=== PATIENT | male | born 1950 | race Hispanic/Latino ===

== ENCOUNTER 2018-08-31 07:17 | Inpatient (IN) | payer MEDICARE ==
[2018-08-31 07:17] VITALS: BMI 30.2
--- NOTE | 2018-08-31 07:47 | C.PDOC ---
History Of Present Illness 68 y/o male presents to ED with c/o infection to left 4th toe for 3 weeks. Patient states he has been seen by Dr. Peng center lead consultant who has put him on outpatient on antibiotics with no improvement as per patient. Patient states toe is more red and swollen, states he had a recent MRI that showed Osteomyelitis. Patient denies fever, chills, nausea, vomiting, numbness or weakness of foot. No other complaints at this time. Time Seen by Provider: 08/31/18 07:34 Chief Complaint (Nursing): Lower Extremity Problem/Injury History Per: Patient History/Exam Limitations: no limitations Onset/Duration Of Symptoms: Days Current Symptoms Are (Timing): Still Present Past Medical History Reviewed: Historical Data, Nursing Documentation, Vital Signs Vital Signs: Last Vital Signs Temp 98.5 F 08/31/18 07:25 Pulse 79 08/31/18 07:25 Resp 16 08/31/18 07:25 BP 143/86 08/31/18 07:25 Pulse Ox 96 08/31/18 07:25 - Medical History PMH: Anxiety, CHF, COPD, Fractures (NASAL CHILDHOOD), HTN, Hypercholesterolemia Surgical History: No Surg Hx - [facility] Procedures TRANSURETHRAL PROSTATECTOMY ([place]) (03/18/14) Family History: States: No Known Family Hx - Social History Hx Alcohol Use: No Hx Substance Use: No - Immunization History Hx Tetanus Toxoid Vaccination: No Hx Influenza Vaccination: Yes Hx Pneumococcal Vaccination: Yes Review Of Systems Constitutional: Negative for: Fever, Chills Eyes: Negative for: Pain ENT: Negative for: Ear Pain Cardiovascular: Negative for: Chest Pain Respiratory: Negative for: Cough, Shortness of Breath Gastrointestinal: Negative for: Nausea, Vomiting Genitourinary: Negative for: Dysuria, Frequency Musculoskeletal: Positive for: Foot Pain (toe) Skin: Negative for: Rash Neurological: Negative for: Weakness, Numbness Physical Exam - Physical Exam Appears: Non-toxic, No Acute Distress Skin: Warm, Dry, No Rash, Other (left 4th toe erythematous) Head: Atraumatic, Normacephalic Eye(s): bilateral: Normal Inspection Oral Mucosa: Moist Neck: Normal ROM Cardiovascular: Rhythm Regular Respiratory: Normal Breath Sounds Gastrointestinal/Abdominal: Soft, No Tenderness Extremity: Capillary Refill (<2 seconds), No Deformity, Swelling (left 4th toe) Pulses: Left Dorsalis Pedis: Normal, Right Dorsalis Pedis: Normal Neurological/Psych: Oriented x3, Normal Motor, Normal Sensation Gait: Steady ED Course And Treatment - Laboratory Results Result Diagrams: 08/31/18 08:10 08/31/18 08:10 O2 Sat by Pulse Oximetry: 96 (RA) Pulse Ox Interpretation: Normal Medical Decision Making Medical Decision Making: The case was discussed with Dr. Jared Peng (Nut Former) who states that the qasim ent has Osteomyelitits and needs admission for IV antibiotics and has failed outpatient therapy. The case was discussed with Dr. Jose Peng (PMD) who agrees to admit the patient his service and requests Dr. Levin for surgical consult. Disposition - Disposition Disposition: HOSPITALIZED Disposition Time: 08:55 Condition: STABLE - POA Present On Arrival: None - Clinical Impression Clinical Impression: Osteomyelitis - PA / SPORTS TEAM MANAGER / Resident Statement MD/DO has reviewed & agrees with the documentation as recorded. - Scribe Statement The provider has reviewed the documentation as recorded by the Meera Kaba All medical record entries made by the Meera were at my direction and personally dictated by me. I have reviewed the chart and agree that the record accurately reflects my personal performance of the history, physical exam, medical decision making, and the department course for this patient. I have also personally directed, reviewed, and agree with the discharge instructions and disposition.
[2018-08-31 08:14] LABS: BASO # 0.1 K/uL (0.0-0.2); BASO % 1.5 % (0.0-2.0); EOS # 0.3 K/uL (0.0-0.7); EOS % 4.8 % (0.0-4.0); HEMOGLOBIN 15.1 g/dL (12.0-18.0); LYMPH % 14.9 % (20.0-40.0); MEAN CELL VOLUME 83.8 fL (80.0-94.0); MEAN CORPUSCULAR HEMOGLOBIN 28.1 pg (27.0-31.0); MEAN CORPUSCULAR HGB CONC 33.6 g/dL (33.0-37.0); MEAN PLATELET VOLUME 10.3 fL (7.2-11.7); MONO # 0.6 K/uL (0.0-0.8); MONO % 9.5 % (0.0-10.0); NEUT # 4.6 K/uL (1.8-7.0); NEUT % 69.3 % (50.0-75.0); NRBC % 0.2 % (0.0-2.0); RBC 5.36 Mil/uL (4.40-5.90); RED CELL DISTRIBUTION WIDTH 14.4 % (11.5-14.5); WHITE BLOOD COUNT 6.6 K/uL (4.8-10.8)
[2018-08-31 08:25] LABS: ALB/GLOB RATIO 1.4 (1.0-2.1); ALBUMIN 4.5 g/dL (3.5-5.0); ALT/SGPT 21 U/L (21-72); AST/SGOT 18 U/L (17-59); BLOOD UREA NITROGEN 21 mg/dL (9-20); CALCIUM 9.6 mg/dl (8.6-10.4); GFR NON-AFRICAN AMERICAN > 60
--- NOTE | 2018-08-31 12:29 | CP.PCM.CON ---
History of Present Illness - History of Present Illness History of Present Illness: 68 y/o male presents to ED with c/o infection to left 4th toe for 3 weeks. Patient states he has been seen by Dr. Peng truck washer who has put him on outpatient on antibiotics with no improvement as per patient. Patient states toe is more red and swollen, states he had a recent MRI that showed Osteomyelitis. Patient denies fever, chills, nausea, vomiting, numbness or weakness of foot. No other complaints at this time. EMPIRIC iv RX ORDERED CULTURES PENDING MAY ELECT FOR RESECTION NEEDS VASCULAR CLEARANCE - Medical History PMH: Anxiety, CHF, COPD, Fractures (NASAL CHILDHOOD), HTN, Hypercholesterolemia Surgical History: No Surg Hx - [facility] Procedures TRANSURETHRAL PROSTATECTOMY ([place]) (03/18/14) Review of Systems - Review of Systems All systems: reviewed and no additional remarkable complaints except Past Patient History - Infectious Disease Hx of Infectious Diseases: None - Past Medical History & Family History Past Medical History?: Yes - Past Social History Smoking Status: Former Smoker - CARDIAC Hx Congestive Heart Failure: Yes Hx Hypercholesterolemia: Yes Hx Hypertension: Yes - PULMONARY Hx Chronic Obstructive Pulmonary Disease (COPD): Yes - HEENT Other/Comment: HISTORY NASAL FRACTURE CHILDHOOD - HEMATOLOGICAL/ONCOLOGICAL Hx Cancer: Yes Hx Chemotherapy: Yes (2011 RADIATION 2012) - MUSCULOSKELETAL/RHEUMATOLOGICAL Hx Fractures: Yes (NASAL CHILDHOOD) - GENITOURINARY/GYNECOLOGICAL Hx Genitourinary Disorders: Yes Hx Prostate Problems: Yes Other/Comment: URINARY FREQUENCY - PSYCHIATRIC Hx Anxiety: Yes Hx Substance Use: No - SURGICAL HISTORY Hx Surgeries: Yes Hx Arthroscopy: Yes (BOTH KNEES 30 YRS AGO) Hx Pulmonary Surgery: Yes (LEFT UPPER LOBECTOMY 2011) Other/Comment: PROSTATE BX 2006 2007 CYSTOSCOPY LUNG BX - ANESTHESIA Hx Anesthesia: Yes Hx Anesthesia Reactions: No Hx Malignant Hyperthermia: No Meds Allergies/Adverse Reactions: Allergies Allergy/AdvReac Type Severity Reaction Status Date / Time No Known Allergies Allergy Verified 08/31/18 07:32 - Medications Medications: Current Medications Alprazolam (Xanax) 0.25 mg PO BID [facility] Stop: 09/07/18 18:01 Carvedilol (Coreg) 6.25 mg PO BID [facility] Rosuvastatin Calcium (Crestor) 10 mg PO HS [facility] Sacubitril/Valsartan (Entresto 24 Mg-26 Mg) 1 tab PO BID [facility] Sertraline HCl (Zoloft) 100 mg PO DAILY [facility] Physical Exam - Constitutional Appears: Chronically Ill - Head Exam Head Exam: ATRAUMATIC - Eye Exam Eye Exam: absent: Scleral icterus - ENT Exam ENT Exam: Mucous Membranes Dry - Neck Exam Neck exam: Negative for: Lymphadenopathy - Respiratory Exam Respiratory Exam: Decreased Breath Sounds - Cardiovascular Exam Cardiovascular Exam: REGULAR RHYTHM, +S1, +S2 - GI/Abdominal Exam GI & Abdominal Exam: Diminished Bowel Sounds, Soft. absent: Tenderness - Rectal Exam Rectal Exam: Deferred - Exam Exam: NORMAL INSPECTION - Extremities Exam Extremities exam: Negative for: pedal edema, pedal pulses present Additional comments: DECREASED PULSES LEFT 4TH DIGIT WITH ULCER NO PUS Results - Vital Signs Recent Vital Signs: Last Vital Signs Temp 98.6 F 08/31/18 11:29 Pulse 70 08/31/18 11:29 Resp 18 08/31/18 11:29 BP 106/68 08/31/18 11:29 Pulse Ox 95 08/31/18 11:29 - Labs Result Diagrams: 08/31/18 08:10 08/31/18 08:10 Labs: Laboratory Results - last 24 hr 08/31/18 08/31/18 08:10 08:10 WBC 6.6 RBC 5.36 Hgb 15.1 Hct 44.9 MCV 83.8 MCH 28.1 MCHC 33.6 RDW 14.4 Plt Count 142 MPV 10.3 Neut % (Auto) 69.3 Lymph % (Auto) 14.9 L [place] % (Auto) 9.5 Eos % (Auto) 4.8 H Baso % (Auto) 1.5 Neut # (Auto) 4.6 Lymph # (Auto) 1.0 [place] # (Auto) 0.6 Eos # (Auto) 0.3 Baso # (Auto) 0.1 Sodium 140 Potassium 4.9 Chloride 100 Carbon Dioxide 27 Anion Gap 19 BUN 21 H Creatinine 0.9 Est GFR ( Amer) > 60 Est GFR (Non-Af Amer) > 60 Random Glucose 102 Calcium 9.6 Total Bilirubin 0.6 AST 18 ALT 21 Alkaline Phosphatase 46 Total Protein 7.9 Albumin 4.5 Globulin 3.3 Albumin/Globulin Ratio 1.4 Assessment & Plan - Assessment and Plan (Free Text) Assessment: EMPIRIC IV RX ORDERED CULTURES PENDING MAY ELECT FOR RESECTION CONSIDER VASCULAR CLEARANCE
--- NOTE | 2018-08-31 13:55 | RAD ---
Date of service: 08/31/2018 PROCEDURE: Left Foot Radiographs. HISTORY: 4th digit ulcer COMPARISON: None. FINDINGS: BONES: There is moderate soft tissue swelling left 4th toe however no obvious acute displaced fracture nor cortical destructive changes are identified. Findings may represent a cellulitis secondary to ulcer as per history however the ulceration is not well delineated on this plain film radiograph. No subcutaneous emphysema.. Tiny plantar and posterior calcaneal enthesophyte formation JOINTS: There is mild degenerative osteoarthritis 1st MTP joint. Hammertoe deformities of the 4th through 5th digits limits evaluation of joint spaces. SOFT TISSUES: Normal. OTHER FINDINGS: None. IMPRESSION: Moderate soft tissue swelling left 4th toe however no obvious acute displaced fracture nor cortical destructive changes are identified. Findings may represent a cellulitis secondary to ulcer as per history however the ulceration is not well delineated on this plain film radiograph. No subcutaneous emphysema
[2018-08-31] MEDS: Piperacillin/Tazobact 3.375 GM in Sodium Chloride 100 ML IVPB SCH ×2 (14:28→21:27)
--- NOTE | 2018-08-31 14:34 | CP.PCM.CON ---
History of Present Illness - History of Present Illness History of Present Illness: Podiatry - Dr. Peng 68 year old male patient PMHx lung cx, Anxiety, CHF, COPD, hx nasal fx, HTN, Hypercholesterolemia seen and evaluated in ED concerning left 4th digit ulcer + cellulitis. Patient states ulcer and surrounding redness/swelling first developed about 1 month ago; states he went to his PCP Dr. Jose Peng for treatment and was prescribed oral antibiotics however redness persisted and ulcer remained nonhealing. Patient states he then saw Dr. Jared Peng 1 week ago for continued care who prescribed an antibiotic ointment as well. Patient states Dr. Jayme Peng recommended patient obtain an MRI which revealed 4th digit os teomyelitis so was thus referred to the ED for admission - for IV abx and possible 4th digit amputation. At present, patient reports mild pain in 4th digit. Denies n/v/f/c/prabhakar/dizziness. Admits to SOB with exertion. PMHx: as above PSH: lobectomy, right knee excision of cyst, left knee excision of bursa FH: unknown SH: previous occasional ETOH use, 1PPD x56 years - quit 6 years ago, no illicit drug use; retired All: NKDA Past Patient History - Infectious Disease Hx of Infectious Diseases: None - Past Medical History & Family History Past Medical History?: Yes - Past Social History Smoking Status: Former Smoker - CARDIAC Hx Congestive Heart Failure: Yes Hx Hypercholesterolemia: Yes Hx Hypertension: Yes - PULMONARY Hx Chronic Obstructive Pulmonary Disease (COPD): Yes - NEUROLOGICAL Hx Neurological Disorder: No - HEENT Other/Comment: HISTORY NASAL FRACTURE CHILDHOOD - RENAL Hx Chronic Kidney Disease: No - ENDOCRINE/METABOLIC Hx Endocrine Disorders: No - HEMATOLOGICAL/ONCOLOGICAL Hx Cancer: Yes Hx Chemotherapy: Yes (2011 RADIATION 2012) - INTEGUMENTARY Hx Dermatological Problems: Yes Other/Comment: toe wound - MUSCULOSKELETAL/RHEUMATOLOGICAL Hx Fractures: Yes (NASAL CHILDHOOD) - GASTROINTESTINAL Hx Gastrointestinal Disorders: No - GENITOURINARY/GYNECOLOGICAL Hx Genitourinary Disorders: Yes Hx Prostate Problems: Yes Other/Comment: URINARY FREQUENCY - PSYCHIATRIC Hx Anxiety: Yes Hx Substance Use: No - SURGICAL HISTORY Hx Surgeries: Yes Hx Arthroscopy: Yes (BOTH KNEES 30 YRS AGO) Hx Pulmonary Surgery: Yes (LEFT UPPER LOBECTOMY 2011) Other/Comment: PROSTATE BX 2006 2007 CYSTOSCOPY LUNG BX - ANESTHESIA Hx Anesthesia: Yes Hx Anesthesia Reactions: No Hx Malignant Hyperthermia: No Meds Allergies/Adverse Reactions: Allergies Allergy/AdvReac Type Severity Reaction Status Date / Time No Known Allergies Allergy Verified 08/31/18 07:32 - Medications Medications: Current Medications Alprazolam (Xanax) 0.25 mg PO BID [facility] Stop: 09/07/18 18:01 Buspirone HCl (Buspar) 20 mg PO TID [facility] Last Admin: 08/31/18 13:51 Dose: Not Given Carvedilol (Coreg) 6.25 mg PO BID [facility] Home Med (Patient's Own Medication) 1 tab PO DAILY [facility] Piperacillin Sod/Tazobactam (Sod 3.375 gm/ Sodium Chloride) 100 mls @ 200 mls/hr IVPB Q8H [facility]; Protocol Last Admin: 08/31/18 14:28 Dose: 200 mls/hr Rosuvastatin Calcium (Crestor) 10 mg PO HS [facility] Sacubitril/Valsartan (Entresto 24 Mg-26 Mg) 1 tab PO BID [facility] Sertraline HCl (Zoloft) 100 mg PO DAILY [facility] Last Admin: 08/31/18 13:48 Dose: 100 mg Physical Exam - Constitutional Appears: Well, Non-toxic, No Acute Distress - Extremities Exam Additional comments: LLE focusd physical exam: VASC: DP and PT pulses palpable 2/4. CFT <3 seconds to digits x5. Temperature gradient warm to warm, with increase in warmth noted to 4th digit erythema. Nonpitting edema noted to 4th digit. NEURO: Protective sensation diminished. DERM: Full thickness ulceration noted to distal tuft measuring approximately 0.4 x 0.4 x 0.2cm - ulcer noted to have a 100% granular base and hyperkeratotic rim; no drainage; no purulence; no fluctuance; no undermining; no tunneling; no probe to bone; periwound erythema extending proximally to the base of the 4th digit. ORTHO: Minimal tenderness to palpation noted to ulceration. Muscle strength 5/5 for all dorsiflexors, plantarflexors, inverters, and everters. - Neurological Exam Neurological exam: Alert, Oriented x3 - Psychiatric Exam Psychiatric exam: Normal Affect, Normal Mood Results - Vital Signs Recent Vital Signs: Last Vital Signs Temp 97.4 F L 08/31/18 12:00 Pulse 65 08/31/18 12:00 Resp 20 08/31/18 12:00 BP 116/73 08/31/18 12:00 Pulse Ox 95 08/31/18 12:00 - Labs Result Diagrams: 08/31/18 08:10 08/31/18 08:10 Labs: Laboratory Results - last 24 hr 08/31/18 08/31/18 08:10 08:10 WBC 6.6 RBC 5.36 Hgb 15.1 Hct 44.9 MCV 83.8 MCH 28.1 MCHC 33.6 RDW 14.4 Plt Count 142 MPV 10.3 Neut % (Auto) 69.3 Lymph % (Auto) 14.9 L [place] % (Auto) 9.5 Eos % (Auto) 4.8 H Baso % (Auto) 1.5 Neut # (Auto) 4.6 Lymph # (Auto) 1.0 [place] # (Auto) 0.6 Eos # (Auto) 0.3 Baso # (Auto) 0.1 Sodium 140 Potassium 4.9 Chloride 100 Carbon Dioxide 27 Anion Gap 19 BUN 21 H Creatinine 0.9 Est GFR ( Amer) > 60 Est GFR (Non-Af Amer) > 60 Random Glucose 102 Calcium 9.6 Total Bilirubin 0.6 AST 18 ALT 21 Alkaline Phosphatase 46 Total Protein 7.9 Albumin 4.5 Globulin 3.3 Albumin/Globulin Ratio 1.4 Assessment & Plan - Assessment and Plan (Free Text) Assessment: 68M with nonhealing ulceration to left 4th digit + osteomyelitis Plan: Patient seen and evaluated Discussed with attending, Dr. Peng Afebrile, WBC 6.6, ESR 24 Left 4th digit wound culture taken, f/u Left foot XR obtained, f/u report Betadine applied to wound and dressed with DSD -Bactroban ordered QD dressing changes Surgical shoe ordered ID consulted, empiric abx started Podiatry will continue to follow
--- NOTE | 2018-08-31 15:51 | CP.PCM.CON ---
History of Present Illness - History of Present Illness History of Present Illness: This is a surgery consult for Dr. Graff Consulted for chronic wound and osteomyelitis of the L 4th toe Patient is a 68M with PMHx of lung cancer, hypertension, and hypercholestrolemia who was referred to the ER today by his PCP with L 4th toe osteomyelitis. He says he noticed redness and swelling in the toe 3-4 weeks ago. He denies inciting trauma. He went to see his PCP Dr. Raúl Alcaraz and was given antibiotics and recommended to see mixer driver. His mixer driver Dr. David Alcaraz recommended a local antibiotic lotion and stopped using the oral antibiotic. He says nothing made it better so he received an MRI which pt says showed osteomyelitis of the toe. Pt saw Dr. Graff who thought it might be due to a circulation issue in his L leg. Pt was supposed to get an ultrasound today/tomorrow but due to acute worsening of his symptoms he came to the ER. Pt currently rates the presence of 3/10 pain in his L 4th toe with no radiation of redness, tenderness, swelling, and numbness. He denies fevers/chills, tingling, nausea/vomiting, constipation, or claudication with walking. PMHx: L upper lobe lung cancer, BPH, HTN, hypercholestrolemia, CHF, anxiety SxHx: R knee cyst excision, L knee bursa excision, TURP, L upper lobe of lung excision SocHx: Smoked 1 ppd cigarettes 56 years, quit 6 years ago. Prior occasional ETOH use. He denies drug use. Allergies: NKDA Review of Systems - Review of Systems All systems: reviewed and no additional remarkable complaints except Past Patient History - Infectious Disease Hx of Infectious Diseases: None - Past Medical History & Family History Past Medical History?: Yes Past Family History: Reviewed and not pertinent - Past Social History Smoking Status: Former Smoker Alcohol: Other (former occasional) Drugs: Denies - CARDIAC Hx Congestive Heart Failure: Yes Hx Hypercholesterolemia: Yes Hx Hypertension: Yes - PULMONARY Hx Chronic Obstructive Pulmonary Disease (COPD): Yes Hx Lung Cancer: Yes - NEUROLOGICAL Hx Neurological Disorder: No - HEENT Other/Comment: HISTORY NASAL FRACTURE CHILDHOOD - RENAL Hx Chronic Kidney Disease: No - ENDOCRINE/METABOLIC Hx Endocrine Disorders: No - HEMATOLOGICAL/ONCOLOGICAL Hx Cancer: Yes Hx Chemotherapy: Yes (2011 RADIATION 2012) - INTEGUMENTARY Hx Dermatological Problems: Yes Other/Comment: toe wound - MUSCULOSKELETAL/RHEUMATOLOGICAL Hx Fractures: Yes (NASAL CHILDHOOD) - GASTROINTESTINAL Hx Gastrointestinal Disorders: No - GENITOURINARY/GYNECOLOGICAL Hx Genitourinary Disorders: Yes Hx Prostate Problems: Yes Other/Comment: URINARY FREQUENCY - PSYCHIATRIC Hx Anxiety: Yes Hx Substance Use: No - SURGICAL HISTORY Hx Surgeries: Yes Hx Arthroscopy: Yes (BOTH KNEES 30 YRS AGO) Hx Pulmonary Surgery: Yes (LEFT UPPER LOBECTOMY 2011) Other/Comment: PROSTATE BX 2006 2007 CYSTOSCOPY LUNG BX - ANESTHESIA Hx Anesthesia: Yes Hx Anesthesia Reactions: No Hx Malignant Hyperthermia: No Meds Allergies/Adverse Reactions: Allergies Allergy/AdvReac Type Severity Reaction Status Date / Time No Known Allergies Allergy Verified 08/31/18 07:32 - Medications Medications: Current Medications Alprazolam (Xanax) 0.25 mg PO BID [facility] Stop: 09/07/18 18:01 Buspirone HCl (Buspar) 20 mg PO TID [facility] Last Admin: 08/31/18 13:51 Dose: Not Given Carvedilol (Coreg) 6.25 mg PO BID [facility] Home Med (Patient's Own Medication) 1 tab PO DAILY [facility] Piperacillin Sod/Tazobactam (Sod 3.375 gm/ Sodium Chloride) 100 mls @ 200 mls/hr IVPB Q8H [facility]; Protocol Last Admin: 08/31/18 14:28 Dose: 200 mls/hr Rosuvastatin Calcium (Crestor) 10 mg PO [facility] Sacubitril/Valsartan (Entresto 24 Mg-26 Mg) 1 tab PO BID [facility] Sertraline HCl (Zoloft) 100 mg PO DAILY [facility] Last Admin: 08/31/18 13:48 Dose: 100 mg Physical Exam - Constitutional Appears: Well, Non-toxic, No Acute Distress - Head Exam Head Exam: ATRAUMATIC, NORMOCEPHALIC - Eye Exam Eye Exam: Normal appearance. absent: Conjunctival injection, Scleral icterus - ENT Exam ENT Exam: Mucous Membranes Moist, Normal Oropharynx - Respiratory Exam Respiratory Exam: NORMAL BREATHING PATTERN. absent: Accessory Muscle Use, Respiratory Distress - Cardiovascular Exam Cardiovascular Exam: RRR - GI/Abdominal Exam GI & Abdominal Exam: Soft. absent: Distended, Tenderness - Extremities Exam Extremities exam: Positive for: pedal pulses present (BL DP and TP palpable) Additional comments: mild numbness in the toes BL 4th toe left foot with chronic thickened skin, small area of skin breakdown approximately 3mm diameter with no surrounding erythema, minimal amount of serous fluid expressible, no foul odor, minimal tenderness - Neurological Exam Neurological exam: Alert, Oriented x3 - Psychiatric Exam Psychiatric exam: Normal Affect, Normal Mood - Skin Skin Exam: Dry, Normal Color, Warm Results - Vital Signs Recent Vital Signs: Last Vital Signs Temp 97.8 F 08/31/18 15:00 Pulse 60 08/31/18 15:00 Resp 20 08/31/18 15:00 BP 121/70 08/31/18 15:00 Pulse Ox 95 08/31/18 15:00 - Labs Result Diagrams: 08/31/18 08:10 08/31/18 08:10 Labs: Laboratory Results - last 24 hr 08/31/18 08/31/18 08:10 08:10 WBC 6.6 RBC 5.36 Hgb 15.1 Hct 44.9 MCV 83.8 MCH 28.1 MCHC 33.6 RDW 14.4 Plt Count 142 MPV 10.3 Neut % (Auto) 69.3 Lymph % (Auto) 14.9 L [place] % (Auto) 9.5 Eos % (Auto) 4.8 H Baso % (Auto) 1.5 Neut # (Auto) 4.6 Lymph # (Auto) 1.0 [place] # (Auto) 0.6 Eos # (Auto) 0.3 Baso # (Auto) 0.1 Sodium 140 Potassium 4.9 Chloride 100 Carbon Dioxide 27 Anion Gap 19 BUN 21 H Creatinine 0.9 Est GFR ( Amer) > 60 Est GFR (Non-Af Amer) > 60 Random Glucose 102 Calcium 9.6 Total Bilirubin 0.6 AST 18 ALT 21 Alkaline Phosphatase 46 Total Protein 7.9 Albumin 4.5 Globulin 3.3 Albumin/Globulin Ratio 1.4 Assessment & Plan - Assessment and Plan (Free Text) Assessment: 68M with chronic left fourth toe wound Plan: No vascular surgical intervention at this time, patient most likely will not need vascular intervention with palpable pulses, will evaluate further Will get BL MAGALY's with PVR's of the lower extremities to evaluate vasculature recommend antibiotics and local wound care Discussed with Dr. Dajuan Guzman, PGY2
[2018-08-31] MEDS: TAMSULOSIN PO SCH (16:05)
[2018-08-31] MEDS: DUTASTERIDE PO SCH (16:05)
[2018-08-31] MEDS: Sacubitril/Valsartan 24-26mg Tab PO SCH (17:19)
--- NOTE | 2018-09-01 00:33 | HP ---
HISTORY OF PRESENT ILLNESS: A 68-year-old gentleman with history of congestive heart failure, cardiomyopathy, CA lung, COPD, who presented with redness of the left fourth toe for the last two weeks. The patient was seen by me. Circulation looked okay for the foot. The patient was given antibiotics, was referred to Podiatry consult and Dr. Jared Peng and Dr. Graff workup had shown that he had osteomyelitis is not healing. The patient was recommended amputation; however, he was reluctant to have an amputation of the left fourth toe. Subsequently, the patient was seen again by Dr. Peng and again by me and was recommended to continue antibiotic and this morning got worse, came to the emergency room because of increasing pain and redness. PERSONAL HISTORY: He used to smoke one pack per day for more than 50 years, stopped in 2011 when he was diagnosed to have a lung cancer, which has been cured. He has been followed by [facility] in [place]. No ETOH abuse. He walks about 30 minutes everyday. FAMILY HISTORY: Negative for premature coronary artery disease. MEDICATIONS: At home include Xanax 0.25 mg twice a day, BuSpar 90 mg, Coreg CR 20 mg, Entresto 24/26 mg one twice a day, Zoloft 100 mg, Zocor 40 mg, Stiolto p.r.n. ALLERGIES: DENIED. REVIEW OF SYSTEMS: GENERAL: Generalized weakness at times, but he is able to walk several block. He denies any fever or chills. EYES: Wears glasses otherwise unremarkable. EARS: Positive for hearing loss. NECK: Negative for swollen glands. No thyroid enlargement. PULMONARY: Shortness of breath, wheeze at times. He has cancer of the lung. CARDIAC: History positive for dyspnea with exertion and hypertension, but he is able to walk several blocks. At times two to three blocks but with a mild shortness of breath which is stable. No history of rheumatic fever. No documented DC. GASTROINTESTINAL: Negative for abdominal pain, hematemesis or melena. NEUROLOGIC: Negative for TIAs, CVAs, history of depression. MUSCULOSKELETAL: History of joint pain, knee pain, back pains, had infection of the toe. GENITOURINARY: Positive for frequency. PAST MEDICAL HISTORY: He had cancer of the lung for which he had surgery done many years ago. He has also had chemotherapy in the past. PHYSICAL EXAMINATION: GENERAL: Shows elderly gentleman who is conscious, alert, well oriented in no distress. VITAL SIGNS: He is 5 feet 9 inches and weighs 200 pounds. His blood pressure is 140/80, heart rate of 76, respiratory rate of 20 and afebrile. HEENT: Head is normocephalic. Eyes, no pallor, no icterus. Dentures are noted. NECK: Supple. LUNGS: Clear to auscultation. HEART: PMI is not localized. S1, S2 are distant. No definite gallops. Soft, mid systolic murmur, grade 2/6 in the mitral area. ABDOMEN: Soft, nontender. EXTREMITIES: No cyanosis, clubbing or edema. Distal pulse are 1+. Redness and swelling is not in the left fourth toe. SKIN: Scar of surgery in the left lung is noted. NEUROLOGIC: The patient is awake, alert, oriented x3. No focal sign. LABORATORY DATA: Shows hemoglobin of 15, white count is 6.6, potassium is 4.9, BUN is 21, creatinine is 0.9. ASSESSMENT: This 68-year-old gentleman with history of osteomyelitis not responding to p.o. antibiotics. PLAN: At this point, to admit him, IV antibiotics, consultation Dr. Mujica, Dr. Jared Peng and Dr. Graff. After having vascular surgery look at him and he will probably need amputation of left fourth toe. Care of plan was explained to the patient. Jose Peng MD
[2018-09-01] MEDS: Piperacillin/Tazobact 3.375 GM in Sodium Chloride 100 ML IVPB SCH ×3 (06:25→21:05)
--- NOTE | 2018-09-01 08:38 | CP.PCM.PN ---
Subjective - Date & Time of Evaluation Date of Evaluation: 09/01/18 Time of Evaluation: 08:37 - Subjective Subjective: Vasc Surgery: Dr Graff Pt S&E. NAEO. No complaints. MAGALY 1.27 bilaterally. Palpable pulses Objective - Vital Signs/Intake and Output Vital Signs (last 24 hours): Temp Pulse Resp BP Pulse Ox 97.7 F 64 20 109/65 96 09/01/18 08:10 09/01/18 08:10 09/01/18 08:10 09/01/18 08:10 09/01/18 08:10 Intake and Output: 09/01/18 09/01/18 06:59 18:59 Intake Total 600 Balance 600 - Medications Medications: Current Medications Alprazolam (Xanax) 0.25 mg PO BID [facility] Stop: 09/07/18 18:01 Last Admin: 08/31/18 17:19 Dose: 0.25 mg Buspirone HCl (Buspar) 20 mg PO TID [facility] Last Admin: 08/31/18 17:19 Dose: 20 mg Carvedilol (Coreg) 6.25 mg PO BID [facility] Last Admin: 08/31/18 17:18 Dose: 6.25 mg Enoxaparin Sodium (Lovenox) 40 mg SC DAILY [facility] Home Med (Patient's Own Medication) 1 tab PO DAILY [facility] Last Admin: 08/31/18 16:05 Dose: 1 tab Piperacillin Sod/Tazobactam (Sod 3.375 gm/ Sodium Chloride) 100 mls @ 200 mls/hr IVPB Q8H [facility]; Protocol Last Admin: 09/01/18 06:25 Dose: 200 mls/hr Rosuvastatin Calcium (Crestor) 10 mg PO [facility] Last Admin: 08/31/18 21:27 Dose: 10 mg Sacubitril/Valsartan (Entresto 24 Mg-26 Mg) 1 tab PO BID [facility] Last Admin: 08/31/18 17:19 Dose: 1 tab Sertraline HCl (Zoloft) 100 mg PO DAILY [facility] Last Admin: 08/31/18 13:48 Dose: 100 mg - Labs Labs: 08/31/18 08:10 08/31/18 08:10 - Constitutional Appears: Non-toxic, No Acute Distress - ENT Exam ENT Exam: Mucous Membranes Moist - Respiratory Exam Respiratory Exam: absent: Accessory Muscle Use, Respiratory Distress - Cardiovascular Exam Cardiovascular Exam: REGULAR RHYTHM. absent: Tachycardia - GI/Abdominal Exam GI & Abdominal Exam: Soft. absent: Distended, Tenderness - Extremities Exam Extremities Exam: absent: Pedal Edema Additional comments: palpable pulses - Neurological Exam Neurological Exam: Alert, Awake, Oriented x3 - Psychiatric Exam Psychiatric exam: Normal Affect, Normal Mood - Skin Skin Exam: Normal Color, Warm Assessment and Plan - Assessment and Plan (Free Text) Assessment: 68M w/ left toe osteomyelitis Plan: MAGALY 1.27 no vascular surgical intervention required cont mgmt per podiatry d/w Dr Dajuan Acevedo, PGY4
[2018-09-01] MEDS: Sacubitril/Valsartan 24-26mg Tab PO SCH ×2 (10:00→17:09)
[2018-09-01] MEDS: Enoxaparin 40 mg Syringe SC SCH (10:00)
[2018-09-01] MEDS: DUTASTERIDE PO SCH ×2 (11:01→11:30)
[2018-09-01] MEDS: TAMSULOSIN PO SCH ×2 (11:01→11:30)
--- NOTE | 2018-09-01 11:28 | CP.PCM.PN ---
Subjective - Date & Time of Evaluation Date of Evaluation: 09/01/18 Time of Evaluation: 11:27 - Subjective Subjective: patient has palpable pulses and adequate circulation He is cleared from Vacular perspective and should heal Objective - Vital Signs/Intake and Output Vital Signs (last 24 hours): Temp Pulse Resp BP Pulse Ox 97.7 F 64 20 109/65 96 09/01/18 08:10 09/01/18 08:10 09/01/18 08:10 09/01/18 08:10 09/01/18 08:10 Intake and Output: 09/01/18 09/01/18 06:59 18:59 Intake Total 600 Balance 600 - Medications Medications: Current Medications Alprazolam (Xanax) 0.25 mg PO BID [facility] Stop: 09/07/18 18:01 Last Admin: 09/01/18 09:59 Dose: 0.25 mg Buspirone HCl (Buspar) 20 mg PO TID [facility] Last Admin: 09/01/18 09:59 Dose: 20 mg Carvedilol (Coreg) 6.25 mg PO BID [facility] Last Admin: 09/01/18 10:00 Dose: 6.25 mg Enoxaparin Sodium (Lovenox) 40 mg SC DAILY [facility] Last Admin: 09/01/18 10:00 Dose: 40 mg Home Med (Patient's Own Medication) 1 tab PO DAILY [facility] Last Admin: 09/01/18 11:01 Dose: Not Given Piperacillin Sod/Tazobactam (Sod 3.375 gm/ Sodium Chloride) 100 mls @ 200 mls/hr IVPB Q8H [facility]; Protocol Last Admin: 09/01/18 06:25 Dose: 200 mls/hr Mupirocin (Bactroban Ointment) 0 gm TOP DAILY [facility] Last Admin: 09/01/18 11:01 Dose: Not Given Rosuvastatin Calcium (Crestor) 10 mg PO HS [facility] Last Admin: 08/31/18 21:27 Dose: 10 mg Sacubitril/Valsartan (Entresto 24 Mg-26 Mg) 1 tab PO BID [facility] Last Admin: 09/01/18 10:00 Dose: 1 tab Sertraline HCl (Zoloft) 100 mg PO DAILY [facility] Last Admin: 09/01/18 09:59 Dose: 100 mg - Labs Labs: 08/31/18 08:10 08/31/18 08:10
--- NOTE | 2018-09-01 12:27 | CP.PCM.PN ---
Subjective - Date & Time of Evaluation Date of Evaluation: 09/01/18 Time of Evaluation: 08:00 - Subjective Subjective: seen on rounds for amp left 4th digit Objective - Vital Signs/Intake and Output Vital Signs (last 24 hours): Temp Pulse Resp BP Pulse Ox 97.7 F 64 20 109/65 96 09/01/18 08:10 09/01/18 08:10 09/01/18 08:10 09/01/18 08:10 09/01/18 08:10 Intake and Output: 09/01/18 09/01/18 06:59 18:59 Intake Total 600 Balance 600 - Medications Medications: Current Medications Alprazolam (Xanax) 0.25 mg PO BID [facility] Stop: 09/07/18 18:01 Last Admin: 09/01/18 09:59 Dose: 0.25 mg Buspirone HCl (Buspar) 20 mg PO TID [facility] Last Admin: 09/01/18 09:59 Dose: 20 mg Carvedilol (Coreg) 6.25 mg PO BID [facility] Last Admin: 09/01/18 10:00 Dose: 6.25 mg Enoxaparin Sodium (Lovenox) 40 mg SC DAILY [facility] Last Admin: 09/01/18 10:00 Dose: 40 mg Home Med (Patient's Own Medication) 1 tab PO DAILY [facility] Last Admin: 09/01/18 11:30 Dose: 1 tab Piperacillin Sod/Tazobactam (Sod 3.375 gm/ Sodium Chloride) 100 mls @ 200 mls/hr IVPB Q8H [facility]; Protocol Last Admin: 09/01/18 06:25 Dose: 200 mls/hr Mupirocin (Bactroban Ointment) 0 gm TOP DAILY [facility] Last Admin: 09/01/18 11:01 Dose: Not Given Rosuvastatin Calcium (Crestor) 10 mg PO HS [facility] Last Admin: 08/31/18 21:27 Dose: 10 mg Sacubitril/Valsartan (Entresto 24 Mg-26 Mg) 1 tab PO BID [facility] Last Admin: 09/01/18 10:00 Dose: 1 tab Sertraline HCl (Zoloft) 100 mg PO DAILY [facility] Last Admin: 09/01/18 09:59 Dose: 100 mg - Labs Labs: 08/31/18 08:10 08/31/18 08:10 - Constitutional Appears: Non-toxic, Chronically Ill - Head Exam Head Exam: NORMOCEPHALIC - Eye Exam Eye Exam: absent: Scleral icterus - ENT Exam ENT Exam: Mucous Membranes Dry - Neck Exam Neck Exam: absent: Lymphadenopathy - Respiratory Exam Respiratory Exam: Decreased Breath Sounds - Cardiovascular Exam Cardiovascular Exam: REGULAR RHYTHM - GI/Abdominal Exam GI & Abdominal Exam: Distended, Soft - Rectal Exam Rectal Exam: Deferred - Exam Exam: NORMAL INSPECTION - Extremities Exam Extremities Exam: Joint Swelling, Pedal Edema, Tenderness - Back Exam Back Exam: absent: CVA tenderness (L), CVA tenderness (R) - Neurological Exam Neurological Exam: Alert, Awake, Oriented x3 Assessment and Plan - Assessment and Plan (Free Text) Plan: need amp 4th digit left gfoot for OM
--- NOTE | 2018-09-01 12:27 | CP.PCM.PN ---
<Reji Senior - Last Filed: 09/01/18 16:13> Subjective - Date & Time of Evaluation Date of Evaluation: 09/01/18 Time of Evaluation: 12:22 - Subjective Subjective: Podiatry - Dr. Peng 68 year old male patient seen and evaluated this AM for left 4th digit ulceration + cellulitis. Patient resting comfortably, hemodynamically stable and NAD. No acute events overnight. No new lower extremity complaints; denies any pain in left 4th digit today. Dressing to left foot clean/dry/intact. For left foot 4th digit amputation tomorrow 9AM, will be NPO @ mn. Denies n/v/f/c/prabhakar/dizziness. Objective - Vital Signs/Intake and Output Vital Signs (last 24 hours): Temp Pulse Resp BP Pulse Ox 97.7 F 64 20 109/65 96 09/01/18 08:10 09/01/18 08:10 09/01/18 08:10 09/01/18 08:10 09/01/18 08:10 Intake and Output: 09/01/18 09/01/18 06:59 18:59 Intake Total 600 Balance 600 - Medications Medications: Current Medications Alprazolam (Xanax) 0.25 mg PO BID [facility] Stop: 09/07/18 18:01 Last Admin: 09/01/18 09:59 Dose: 0.25 mg Buspirone HCl (Buspar) 20 mg PO TID [facility] Last Admin: 09/01/18 09:59 Dose: 20 mg Carvedilol (Coreg) 6.25 mg PO BID [facility] Last Admin: 09/01/18 10:00 Dose: 6.25 mg Enoxaparin Sodium (Lovenox) 40 mg SC DAILY [facility] Last Admin: 09/01/18 10:00 Dose: 40 mg Home Med (Patient's Own Medication) 1 tab PO DAILY [facility] Last Admin: 09/01/18 11:30 Dose: 1 tab Piperacillin Sod/Tazobactam (Sod 3.375 gm/ Sodium Chloride) 100 mls @ 200 mls/hr IVPB Q8H [facility]; Protocol Last Admin: 09/01/18 06:25 Dose: 200 mls/hr Mupirocin (Bactroban Ointment) 0 gm TOP DAILY [facility] Last Admin: 09/01/18 11:01 Dose: Not Given Rosuvastatin Calcium (Crestor) 10 mg PO HS [facility] Last Admin: 08/31/18 21:27 Dose: 10 mg Sacubitril/Valsartan (Entresto 24 Mg-26 Mg) 1 tab PO BID [facility] Last Admin: 09/01/18 10:00 Dose: 1 tab Sertraline HCl (Zoloft) 100 mg PO DAILY [facility] Last Admin: 09/01/18 09:59 Dose: 100 mg - Labs Labs: 08/31/18 08:10 08/31/18 08:10 - Constitutional Appears: Well, Non-toxic, No Acute Distress - Extremities Exam Additional comments: LLE focusd physical exam: VASC: DP and PT pulses palpable 2/4. CFT <3 seconds to digits x5. Temperature gradient warm to warm, with increase in warmth noted to 4th digit erythema. Nonpitting edema noted to 4th digit. NEURO: Protective sensation diminished. DERM: Full thickness ulceration noted to distal tuft measuring approximately 0.4 x 0.4 x 0.2cm - ulcer noted to have a 100% granular base and hyperkeratotic rim; no drainage; no purulence; no fluctuance; no undermining; no tunneling; no probe to bone; periwound erythema extending proximally to the base of the 4th digit. ORTHO: Minimal tenderness to palpation noted to ulceration. Muscle strength 5/5 for all dorsiflexors, plantarflexors, inverters, and everters. - Neurological Exam Neurological Exam: Alert, Awake, Oriented x3 - Psychiatric Exam Psychiatric exam: Normal Affect, Normal Mood Assessment and Plan - Assessment and Plan (Free Text) Assessment: 68M with non-healing ulceration to left 4th digit + osteomyelitis Plan: Patient seen and evaluated with attending, Dr. Peng Afebrile, ESR 24 Left 4th digit wound culture pending Left foot XR: moderate ST swelling left 4th toe Continue local wound care: bactroban, DSD Activity: WBAT LLE in surgical shoe ID on board - continue abx, Zosyn OR tomorrow Friday09/02/18 @ 9 AM - left 4th digit amputation -Medical clearance requested -Cleared per vascular -NPO @ mn -Hold lovenox Podiatry will continue to follow <Jared Peng - Last Filed: 09/01/18 16:46> Objective - Vital Signs/Intake and Output Vital Signs (last 24 hours): Temp Pulse Resp BP Pulse Ox 97.6 F 72 20 103/61 96 09/01/18 15:00 09/01/18 15:00 09/01/18 15:00 09/01/18 15:00 09/01/18 15:00 Intake and Output: 09/01/18 09/01/18 06:59 18:59 Intake Total 600 600 Balance 600 600 - Medications Medications: Current Medications Alprazolam (Xanax) 0.25 mg PO BID [facility] Stop: 09/07/18 18:01 Last Admin: 09/01/18 09:59 Dose: 0.25 mg Buspirone HCl (Buspar) 20 mg PO TID [facility] Last Admin: 09/01/18 13:58 Dose: 20 mg Carvedilol (Coreg) 6.25 mg PO BID [facility] Last Admin: 09/01/18 10:00 Dose: 6.25 mg Enoxaparin Sodium (Lovenox) 40 mg SC DAILY [facility] Last Admin: 09/01/18 10:00 Dose: 40 mg Home Med (Patient's Own Medication) 1 tab PO DAILY [facility] Last Admin: 09/01/18 11:30 Dose: 1 tab Piperacillin Sod/Tazobactam (Sod 3.375 gm/ Sodium Chloride) 100 mls @ 200 mls/hr IVPB Q8H [facility]; Protocol Last Admin: 09/01/18 13:58 Dose: 200 mls/hr Mupirocin (Bactroban Ointment) 0 gm TOP DAILY [facility] Last Admin: 09/01/18 11:01 Dose: Not Given Rosuvastatin Calcium (Crestor) 10 mg PO HS [facility] Last Admin: 08/31/18 21:27 Dose: 10 mg Sacubitril/Valsartan (Entresto 24 Mg-26 Mg) 1 tab PO BID [facility] Last Admin: 09/01/18 10:00 Dose: 1 tab Sertraline HCl (Zoloft) 100 mg PO DAILY [facility] Last Admin: 09/01/18 09:59 Dose: 100 mg - Labs Labs: 08/31/18 08:10 08/31/18 08:10 Attending/Attestation - Attestation I have personally seen and examined this patient.: Yes I have fully participated in the care of the patient.: Yes I have reviewed all pertinent clinical information, including history, physical exam and plan: Yes Notes (Text): 09/01/18 16:43 Pt seen with resident for left 4th digit non healing ulcer with osteo. Pt scheduled for left 4th digit amp on 09/02/2018 at 9AM. Pt understands all risks and alternatives and consents to proposed procedure. Pt understands that this is a limb salvage procedure and that if healing is compromised future surgery and/or limbloss is possible. Pt has been seen by vascular and cleared for surgery. Pt to be seen by medicine and cleared. Lovenox to be held and orders written for NPO.
--- NOTE | 2018-09-01 18:07 | CP.PCM.PN ---
Subjective - Date & Time of Evaluation Date of Evaluation: 09/01/18 Time of Evaluation: 18:06 - Subjective Subjective: for or in am.ok. Objective - Vital Signs/Intake and Output Vital Signs (last 24 hours): Temp Pulse Resp BP Pulse Ox 97.6 F 72 20 115/73 96 09/01/18 15:00 09/01/18 15:00 09/01/18 15:00 09/01/18 17:11 09/01/18 15:00 Intake and Output: 09/01/18 09/01/18 06:59 18:59 Intake Total 600 600 Balance 600 600 - Medications Medications: Current Medications Alprazolam (Xanax) 0.25 mg PO BID [facility] Stop: 09/07/18 18:01 Last Admin: 09/01/18 09:59 Dose: 0.25 mg Buspirone HCl (Buspar) 20 mg PO TID [facility] Last Admin: 09/01/18 17:09 Dose: 20 mg Carvedilol (Coreg) 6.25 mg PO BID [facility] Last Admin: 09/01/18 17:09 Dose: 6.25 mg Enoxaparin Sodium (Lovenox) 40 mg SC DAILY [facility] Last Admin: 09/01/18 10:00 Dose: 40 mg Home Med (Patient's Own Medication) 1 tab PO DAILY [facility] Last Admin: 09/01/18 11:30 Dose: 1 tab Piperacillin Sod/Tazobactam (Sod 3.375 gm/ Sodium Chloride) 100 mls @ 200 mls/hr IVPB Q8H [facility]; Protocol Last Admin: 09/01/18 13:58 Dose: 200 mls/hr Mupirocin (Bactroban Ointment) 0 gm TOP DAILY [facility] Last Admin: 09/01/18 11:01 Dose: Not Given Rosuvastatin Calcium (Crestor) 10 mg PO HS [facility] Last Admin: 08/31/18 21:27 Dose: 10 mg Sacubitril/Valsartan (Entresto 24 Mg-26 Mg) 1 tab PO BID [facility] Last Admin: 09/01/18 17:09 Dose: 1 tab Sertraline HCl (Zoloft) 100 mg PO DAILY [facility] Last Admin: 09/01/18 09:59 Dose: 100 mg - Labs Labs: 08/31/18 08:10 10/08/18 08:10 - Constitutional Appears: No Acute Distress - Head Exam Head Exam: NORMOCEPHALIC - Neck Exam Neck Exam: Normal Inspection - Respiratory Exam Respiratory Exam: Clear to Ausculation Bilateral - Cardiovascular Exam Cardiovascular Exam: REGULAR RHYTHM, Murmur - GI/Abdominal Exam GI & Abdominal Exam: Soft - Extremities Exam Extremities Exam: absent: Pedal Edema - Neurological Exam Neurological Exam: Alert, Oriented x3 Assessment and Plan - Assessment and Plan (Free Text) Assessment: cardiomyopathy.stable.last echo,02/2018 lvef of 35-40%.cleared for toe amputation at low risk.
[2018-09-02] MEDS: Piperacillin/Tazobact 3.375 GM in Sodium Chloride 100 ML IVPB SCH ×3 (05:16→21:21)
[2018-09-02 06:42] LABS: INR 1.2
[2018-09-02 07:04] LABS: BASO # 0.1 K/uL (0.0-0.2); BASO % 1.1 % (0.0-2.0); EOS # 0.3 K/uL (0.0-0.7); EOS % 5.6 % (0.0-4.0); HEMOGLOBIN 14.1 g/dL (12.0-18.0); LYMPH # 0.8 K/uL (1.0-4.3); LYMPH % 14.7 % (20.0-40.0); MEAN CELL VOLUME 83.9 fL (80.0-94.0); MEAN CORPUSCULAR HEMOGLOBIN 28.6 pg (27.0-31.0); MEAN CORPUSCULAR HGB CONC 34.1 g/dL (33.0-37.0); MEAN PLATELET VOLUME 10.1 fL (7.2-11.7); MONO # 0.6 K/uL (0.0-0.8); MONO % 10.8 % (0.0-10.0); NEUT # 3.8 K/uL (1.8-7.0); NEUT % 67.8 % (50.0-75.0); NRBC % 0.1 % (0.0-2.0); RBC 4.93 Mil/uL (4.40-5.90); RED CELL DISTRIBUTION WIDTH 14.3 % (11.5-14.5); WHITE BLOOD COUNT 5.6 K/uL (4.8-10.8)
[2018-09-02 07:18] LABS: ALB/GLOB RATIO 1.5 (1.0-2.1); ALBUMIN 4.1 g/dL (3.5-5.0); ALT/SGPT 22 U/L (21-72); AST/SGOT 15 U/L (17-59); BLOOD UREA NITROGEN 17 mg/dL (9-20); GFR NON-AFRICAN AMERICAN > 60
[2018-09-02] MEDS ORDERED: Lidocaine Hydrochloride 10 ML INJ ONE (09:12)
[2018-09-02] MEDS ORDERED: Bupivacaine 0.25% 20 ML INJ IJ ONE (09:12)
[2018-09-02] MEDS ORDERED: Midazolam 2 MG/2 ML VIAL ONE (09:12)
[2018-09-02] MEDS ORDERED: Propofol 10 mg/ml Inj (20 ML) ONE (09:13)
[2018-09-02] MEDS: DUTASTERIDE PO SCH ×2 (09:22→11:31)
[2018-09-02] MEDS: Sacubitril/Valsartan 24-26mg Tab PO SCH ×3 (09:22→18:06)
[2018-09-02] MEDS: TAMSULOSIN PO SCH ×2 (09:22→11:31)
[2018-09-02] MEDS ORDERED: HYDROmorphone 0.5 mg/0.5 ml ISec IVP PRN ×2 (09:26→10:20)
[2018-09-02] MEDS ORDERED: Oxycodone/Acetaminophen 5/325 mg Tab PO PRN (10:12)
--- NOTE | 2018-09-02 10:20 | PCM.SURG1 ---
Surgeon's Initial Post Op Note - Surgeon's Notes Surgeon: Dr. Jared Peng Television Mechanic: Reji Senior PGY2, Nesha Peng PGY1 Type of Anesthesia: IV Sedation, Local Anesthesia Administered By: Dr. glover Pre-Operative Diagnosis: left fourth digit ulcer with osteomyelitis Operative Findings: see dictations. Injectibles: 10 cc of 1:1 mixture of 1% lidocaine and .25% marcaine. materials: 3-0 vicryl, 4-0 prolene Post-Operative Diagnosis: same Operation Performed: Left fourth digit amputation Specimen/Specimens Removed: deep wound cultures taken. fourth digit sent for pathology Estimated Blood Loss: EBL {In ML}: 10 Blood Products Given: N/A Drains Used: No Drains Post-Op Condition: Good Date of Surgery/Procedure: 09/02/18 Time of Surgery/Procedure: 10:20
[2018-09-02] MEDS ORDERED: Lactated Ringer's 1,000 ML IV SCH (10:30)
--- NOTE | 2018-09-02 11:27 | CP.PCM.PN ---
Subjective - Date & Time of Evaluation Date of Evaluation: 09/02/18 Time of Evaluation: 11:26 - Subjective Subjective: s/p or.ok. Objective - Vital Signs/Intake and Output Vital Signs (last 24 hours): Temp Pulse Resp BP Pulse Ox 97.6 F 62 16 141/80 95 09/02/18 10:45 09/02/18 10:45 09/02/18 10:45 09/02/18 10:45 09/02/18 10:45 Intake and Output: 09/02/18 09/02/18 06:59 18:59 Intake Total 600 210 Balance 600 210 - Medications Medications: Current Medications Acetaminophen (Tylenol 325mg Tab) 650 mg PO Q6 PRN PRN Reason: Pain, Mild (1-3) Alprazolam (Xanax) 0.25 mg PO BID [facility] Stop: 09/07/18 18:01 Last Admin: 09/02/18 09:22 Dose: Not Given Buspirone HCl (Buspar) 20 mg PO TID [facility] Last Admin: 09/02/18 09:22 Dose: Not Given Carvedilol (Coreg) 6.25 mg PO BID [facility] Last Admin: 09/02/18 09:22 Dose: Not Given Enoxaparin Sodium (Lovenox) 40 mg SC DAILY [facility] Last Admin: 09/01/18 10:00 Dose: 40 mg Home Med (Patient's Own Medication) 1 tab PO DAILY [facility] Last Admin: 09/02/18 09:22 Dose: Not Given Hydromorphone HCl (Dilaudid) 0.5 mg IVP Q10M PRN PRN Reason: Pain, moderate (4-7) Stop: 09/02/18 12:21 Piperacillin Sod/Tazobactam (Sod 3.375 gm/ Sodium Chloride) 100 mls @ 200 mls/hr IVPB Q8H [facility]; Protocol Last Admin: 09/02/18 05:16 Dose: 200 mls/hr Lactated Ringer's (Lactated Ringer's) 1,000 mls @ 150 mls/hr IV .Q6H40M [facility] Mupirocin (Bactroban Ointment) 0 gm TOP DAILY [facility] Last Admin: 09/01/18 11:01 Dose: Not Given Ondansetron HCl (Zofran Inj) 4 mg IVP ONCE PRN PRN Reason: Nausea/Vomiting Stop: 09/02/18 12:21 Oxycodone/Acetaminophen (Percocet 5/325 Mg Tab) 1 tab PO Q6H PRN PRN Reason: Pain, moderate (4-7) Stop: 09/05/18 10:13 Oxycodone/Acetaminophen (Percocet 5/325 Mg Tab) 2 tab PO Q6H PRN PRN Reason: Pain, severe (8-10) Stop: 09/05/18 10:13 Rosuvastatin Calcium (Crestor) 10 mg PO HS [facility] Last Admin: 09/01/18 21:05 Dose: 10 mg Sacubitril/Valsartan (Entresto 24 Mg-26 Mg) 1 tab PO BID [facility] Last Admin: 09/02/18 09:22 Dose: Not Given Sertraline HCl (Zoloft) 100 mg PO DAILY [facility] Last Admin: 09/02/18 09:22 Dose: Not Given - Labs Labs: 09/02/18 06:27 09/02/18 06:27 PT 13.0 SECONDS (9.7-12.2) H 09/02/18 06:27 INR 1.2 09/02/18 06:27 - Constitutional Appears: No Acute Distress - Neck Exam Neck Exam: Normal Inspection - Respiratory Exam Respiratory Exam: Clear to Ausculation Bilateral - Cardiovascular Exam Cardiovascular Exam: REGULAR RHYTHM - GI/Abdominal Exam GI & Abdominal Exam: Soft - Extremities Exam Extremities Exam: absent: Pedal Edema - Neurological Exam Neurological Exam: Alert, Oriented x3 Assessment and Plan - Assessment and Plan (Free Text) Plan: om toe.s/p amputation.stable post op.
--- NOTE | 2018-09-02 12:56 | RAD ---
Date of service: 09/02/2018 PROCEDURE: Left Foot Radiographs. HISTORY: s/p left fourth digit amputation COMPARISON: Left foot radiographs 08/31/2018. FINDINGS: BONES: No fracture or destructive bony lesion appreciable. Patient status post left 4th digit amputation. JOINTS: Normal. SOFT TISSUES: Limited postoperative hyperdensity is seen in soft tissues distal to the 4th metatarsal bone. OTHER FINDINGS: None. IMPRESSION: Status post left 4th digit amputation with limited postop changes noted in local soft tissues.
--- NOTE | 2018-09-02 14:55 | VASCLAB ---
Date of service: 08/31/2018 STUDY DESCRIPTION: Lower Extremity Arterial Exam (PVR). HISTORY: Left Ulcer. PRIORS: None. TECHNIQUE: Pulse volume recording waveforms and segmental pressures of bilateral lower extremities at multiple levels were obtained. Ankle Brachial Indices (ABIs) were calculated. Report prepared by DAVIAN Asencio RIGHT LOWER EXTREMITY: * Brachial artery: Pressure - 107 mmHg. * High thigh: Pressure - 129 mmHg: Ratio - 1.17: PVR waveform - Pulsatile * Low thigh: Pressure - 150 mmHg: Ratio - 1.36 PVR waveform: Pulsatile * Calf: Pressure - 133 mmHg: Ratio - 1.21 PVR waveform: Pulsatile * Posterior tibial Artery: Pressure - 140 mmHg: Ratio - 1.27 PVR waveform: Pulsatile * Dorsalis pedis Artery: Pressure - 134 mmHg: Ratio - 1.22 PVR waveform: Pulsatile * Great toe: Pressure - 66 mmHg: Ratio - 0.60 PVR waveform: Pulsatile Ankle brachial index (MAGALY): 1.27 LEFT LOWER EXTREMITY: * Brachial artery: Pressure - 110 mmHg. * High thigh: Pressure - 139 mmHg: Ratio - 1.26: PVR waveform - Pulsatile * Low thigh: Pressure - 142 mmHg: Ratio - 1.29 PVR waveform: Pulsatile * Calf: Pressure - 141 mmHg: Ratio - 1.28 PVR waveform: Pulsatile * Posterior tibial Artery: Pressure - 136 mmHg: Ratio - 1.24 PVR waveform: Pulsatile * Dorsalis pedis Artery: Pressure - 140 mmHg: Ratio - 1.27 PVR waveform: Pulsatile * Great toe: Unable to obtain. Ankle brachial index (MAGALY): 1.27 OTHER FINDINGS: Ankle brachial indices and arterial PVR waveforms suggest normal arterial perfusion to bilateral lower extremities, at rest. IMPRESSION: There was no evidence of hemodynamically significant arterial insufficiency in bilateral lower extremities.
[2018-09-02 15:39] VITALS: RESP 20
--- NOTE | 2018-09-02 16:11 | CARD ---
APPROVED REPORT Date of service: 09/01/2018 EKG Measurement Heart [id number] ME [id number] <Conclusion> Normal sinus rhythm Left axis deviation Left bundle branch block Abnormal ECG
--- NOTE | 2018-09-02 18:44 | CP.PCM.PN ---
Subjective - Date & Time of Evaluation Date of Evaluation: 09/02/18 Time of Evaluation: 07:00 - Subjective Subjective: carline s/p amputation iv rx renewed await cultures Objective - Vital Signs/Intake and Output Vital Signs (last 24 hours): Temp Pulse Resp BP Pulse Ox 97.8 F 72 20 145/82 97 09/02/18 15:38 09/02/18 15:38 09/02/18 15:38 09/02/18 15:38 09/02/18 15:38 Intake and Output: 09/02/18 09/02/18 06:59 18:59 Intake Total 600 210 Balance 600 210 - Medications Medications: Current Medications Acetaminophen (Tylenol 325mg Tab) 650 mg PO Q6 PRN PRN Reason: Pain, Mild (1-3) Alprazolam (Xanax) 0.25 mg PO BID [facility] Stop: 09/07/18 18:01 Last Admin: 09/02/18 18:07 Dose: 0.25 mg Buspirone HCl (Buspar) 20 mg PO TID [facility] Last Admin: 09/02/18 18:07 Dose: 20 mg Carvedilol (Coreg) 6.25 mg PO BID [facility] Last Admin: 09/02/18 18:06 Dose: 6.25 mg Enoxaparin Sodium (Lovenox) 40 mg SC DAILY [facility] Last Admin: 09/01/18 10:00 Dose: 40 mg Home Med (Patient's Own Medication) 1 tab PO DAILY [facility] Last Admin: 09/02/18 11:31 Dose: 1 tab Piperacillin Sod/Tazobactam (Sod 3.375 gm/ Sodium Chloride) 100 mls @ 200 mls/hr IVPB Q8H [facility]; Protocol Last Admin: 09/02/18 13:57 Dose: 200 mls/hr Mupirocin (Bactroban Ointment) 0 gm TOP DAILY [facility] Last Admin: 09/02/18 11:22 Dose: Not Given Oxycodone/Acetaminophen (Percocet 5/325 Mg Tab) 1 tab PO Q6H PRN PRN Reason: Pain, moderate (4-7) Stop: 09/05/18 10:13 Oxycodone/Acetaminophen (Percocet 5/325 Mg Tab) 2 tab PO Q6H PRN PRN Reason: Pain, severe (8-10) Stop: 09/05/18 10:13 Rosuvastatin Calcium (Crestor) 10 mg PO HS [facility] Last Admin: 09/01/18 21:05 Dose: 10 mg Sacubitril/Valsartan (Entresto 24 Mg-26 Mg) 1 tab PO BID [facility] Last Admin: 09/02/18 18:06 Dose: 1 tab Sertraline HCl (Zoloft) 100 mg PO DAILY [facility] Last Admin: 09/02/18 11:37 Dose: 100 mg - Labs Labs: 09/02/18 06:27 09/02/18 06:27 PT 13.0 SECONDS (9.7-12.2) H 09/02/18 06:27 INR 1.2 09/02/18 06:27 - Constitutional Appears: Non-toxic, Chronically Ill - Head Exam Head Exam: NORMOCEPHALIC - Eye Exam Eye Exam: PERRL - ENT Exam ENT Exam: Mucous Membranes Dry - Neck Exam Neck Exam: absent: Lymphadenopathy - Respiratory Exam Respiratory Exam: Decreased Breath Sounds - Cardiovascular Exam Cardiovascular Exam: REGULAR RHYTHM - GI/Abdominal Exam GI & Abdominal Exam: Distended, Soft - Rectal Exam Rectal Exam: Deferred - Exam Exam: NORMAL INSPECTION Assessment and Plan (1) Osteomyelitis Status: Acute - Assessment and Plan (Free Text) Assessment: cont iv rx await cultures of bone
[2018-09-02] MEDS: Oxycodone/Acetaminophen 5/325 mg Tab PO PRN (20:11)
[2018-09-03] MEDS: Oxycodone/Acetaminophen 5/325 mg Tab PO PRN (01:46)
[2018-09-03] MEDS: Piperacillin/Tazobact 3.375 GM in Sodium Chloride 100 ML IVPB SCH ×3 (05:23→21:07)
[2018-09-03] MEDS: TAMSULOSIN PO SCH (09:35)
[2018-09-03] MEDS: DUTASTERIDE PO SCH (09:35)
[2018-09-03] MEDS: Sacubitril/Valsartan 24-26mg Tab PO SCH ×2 (09:35→17:33)
--- NOTE | 2018-09-03 12:07 | CP.PCM.PN ---
Subjective - Date & Time of Evaluation Date of Evaluation: 09/03/18 Time of Evaluation: 12:05 - Subjective Subjective: feels better.no fever.leg cramps. Objective - Vital Signs/Intake and Output Vital Signs (last 24 hours): Temp Pulse Resp BP Pulse Ox 97.7 F 65 20 122/74 95 09/03/18 07:00 09/03/18 07:00 09/03/18 07:00 09/03/18 07:00 09/03/18 07:00 - Medications Medications: Current Medications Acetaminophen (Tylenol 325mg Tab) 650 mg PO Q6 PRN PRN Reason: Pain, Mild (1-3) Alprazolam (Xanax) 0.25 mg PO BID [facility] Stop: 09/07/18 18:01 Last Admin: 09/03/18 09:35 Dose: 0.25 mg Buspirone HCl (Buspar) 20 mg PO TID [facility] Last Admin: 09/03/18 09:35 Dose: 20 mg Carvedilol (Coreg) 6.25 mg PO BID [facility] Last Admin: 09/03/18 09:35 Dose: 6.25 mg Enoxaparin Sodium (Lovenox) 40 mg SC DAILY [facility] Last Admin: 09/01/18 10:00 Dose: 40 mg Home Med (Patient's Own Medication) 1 tab PO DAILY [facility] Last Admin: 09/03/18 09:35 Dose: 1 tab Piperacillin Sod/Tazobactam (Sod 3.375 gm/ Sodium Chloride) 100 mls @ 200 mls/hr IVPB Q8H [facility]; Protocol Last Admin: 09/03/18 05:23 Dose: 200 mls/hr Mupirocin (Bactroban Ointment) 0 gm TOP DAILY [facility] Last Admin: 09/03/18 09:36 Dose: Not Given Oxycodone/Acetaminophen (Percocet 5/325 Mg Tab) 1 tab PO Q6H PRN PRN Reason: Pain, moderate (4-7) Stop: 09/05/18 10:13 Last Admin: 09/03/18 01:46 Dose: 1 tab Oxycodone/Acetaminophen (Percocet 5/325 Mg Tab) 2 tab PO Q6H PRN PRN Reason: Pain, severe (8-10) Stop: 09/05/18 10:13 Rosuvastatin Calcium (Crestor) 10 mg PO HS [facility] Last Admin: 09/02/18 21:21 Dose: 10 mg Sacubitril/Valsartan (Entresto 24 Mg-26 Mg) 1 tab PO BID [facility] Last Admin: 09/03/18 09:35 Dose: 1 tab Sertraline HCl (Zoloft) 100 mg PO DAILY [facility] Last Admin: 09/03/18 09:35 Dose: 100 mg - Labs Labs: 09/02/18 06:27 09/02/18 06:27 PT 13.0 SECONDS (9.7-12.2) H 09/02/18 06:27 INR 1.2 09/02/18 06:27 - Constitutional Appears: No Acute Distress - Eye Exam Eye Exam: Normal appearance - Neck Exam Neck Exam: Normal Inspection - Respiratory Exam Respiratory Exam: Clear to Ausculation Bilateral - Cardiovascular Exam Cardiovascular Exam: REGULAR RHYTHM - Extremities Exam Extremities Exam: absent: Pedal Edema - Neurological Exam Neurological Exam: Alert, Oriented x3 Assessment and Plan - Assessment and Plan (Free Text) Plan: stable post op.cpm.hopefully d/c in am.
--- NOTE | 2018-09-03 14:03 | CP.PCM.PN ---
Subjective - Date & Time of Evaluation Date of Evaluation: 09/03/18 Time of Evaluation: 11:00 - Subjective Subjective: Podiatry - Dr. Peng 68M seen and evaluated this AM POD#1 left foot 4th digit amputation. Patient resting comfortably, hemodynamicaly stable and NAD. No acute events overnight. Patient reported minimal pain yesterday evening however no complaints today. Patient has been weightbearing to the heel despite strict NWB LLE orders. Dressing to left foot saturated with blood. Denies n/v/f/c/prabhakar/dizziness. Objective - Vital Signs/Intake and Output Vital Signs (last 24 hours): Temp Pulse Resp BP Pulse Ox 97.7 F 65 20 122/74 95 09/03/18 07:00 09/03/18 07:00 09/03/18 07:00 09/03/18 07:00 09/03/18 07:00 - Medications Medications: Current Medications Acetaminophen (Tylenol 325mg Tab) 650 mg PO Q6 PRN PRN Reason: Pain, Mild (1-3) Alprazolam (Xanax) 0.25 mg PO BID [facility] Stop: 09/07/18 18:01 Last Admin: 09/03/18 09:35 Dose: 0.25 mg Buspirone HCl (Buspar) 20 mg PO TID [facility] Last Admin: 09/03/18 13:40 Dose: 20 mg Carvedilol (Coreg) 6.25 mg PO BID [facility] Last Admin: 09/03/18 09:35 Dose: 6.25 mg Enoxaparin Sodium (Lovenox) 40 mg SC DAILY [facility] Last Admin: 09/01/18 10:00 Dose: 40 mg Home Med (Patient's Own Medication) 1 tab PO DAILY [facility] Last Admin: 09/03/18 09:35 Dose: 1 tab Piperacillin Sod/Tazobactam (Sod 3.375 gm/ Sodium Chloride) 100 mls @ 200 mls/hr IVPB Q8H [facility]; Protocol Last Admin: 09/03/18 13:40 Dose: 200 mls/hr Mupirocin (Bactroban Ointment) 0 gm TOP DAILY [facility] Last Admin: 09/03/18 09:36 Dose: Not Given Oxycodone/Acetaminophen (Percocet 5/325 Mg Tab) 1 tab PO Q6H PRN PRN Reason: Pain, moderate (4-7) Stop: 09/05/18 10:13 Last Admin: 09/03/18 01:46 Dose: 1 tab Oxycodone/Acetaminophen (Percocet 5/325 Mg Tab) 2 tab PO Q6H PRN PRN Reason: Pain, severe (8-10) Stop: 09/05/18 10:13 Rosuvastatin Calcium (Crestor) 10 mg PO HS [facility] Last Admin: 09/02/18 21:21 Dose: 10 mg Sacubitril/Valsartan (Entresto 24 Mg-26 Mg) 1 tab PO BID [facility] Last Admin: 09/03/18 09:35 Dose: 1 tab Sertraline HCl (Zoloft) 100 mg PO DAILY [facility] Last Admin: 09/03/18 09:35 Dose: 100 mg - Labs Labs: 09/02/18 06:27 09/02/18 06:27 PT 13.0 SECONDS (9.7-12.2) H 09/02/18 06:27 INR 1.2 09/02/18 06:27 - Constitutional Appears: Well, Non-toxic, No Acute Distress - Extremities Exam Additional comments: LLE focused physical exam: VASC: DP and PT pulses palpable 2/4. CFT <3 seconds to digits x4. Temperature gradient warm to warm. NEURO: Protective sensation diminished. DERM: Linear incision noted to 4th digit amputation site noted to be well- coapted with sutures intact and no wound dehiscence noted; no active bleeding present; minimal periwound ecchymosisi; no fluctuance; no purulence. ORTHO: No pain on palpation noted to incision. 4th digit amputation. Muscle strength 5/5 for all dorsiflexors, plantarflexors, inverters, and everters. - Neurological Exam Neurological Exam: Alert, Awake, Oriented x3 - Psychiatric Exam Psychiatric exam: Normal Affect, Normal Mood Assessment and Plan - Assessment and Plan (Free Text) Assessment: 68M POD#1 left 4th digit amputation (DOS: 09/02/18) Plan: Patient seen and evaluated Discussed with attending, Dr. Danish Granados Left 4th digit wound culture: coagulase neg staph Left 4th digit intra-op deep cultures pending Continue local wound care: xeroform, DSD, NANDA Activity: strict NWB LLE ID on board - continue abx, Zosyn Continue to hold lovenox, restart tomorrow Dispo: possible dc tomorrow Podiatry will continue to follow
[2018-09-04] MEDS: Piperacillin/Tazobact 3.375 GM in Sodium Chloride 100 ML IVPB SCH (05:36)
[2018-09-04 07:51] VITALS: BP 115/78; PULSE 66; TEMP 97.4; O2SAT 96
[2018-09-04] MEDS: Sacubitril/Valsartan 24-26mg Tab PO SCH (09:46)
[2018-09-04] MEDS: DUTASTERIDE PO SCH (09:46)
[2018-09-04] MEDS: Enoxaparin 40 mg Syringe SC SCH (09:46)
[2018-09-04] MEDS: TAMSULOSIN PO SCH (09:46)
[2018-09-04 11:42] LABS: BASO # 0.1 K/uL (0.0-0.2); BASO % 1.4 % (0.0-2.0); EOS # 0.3 K/uL (0.0-0.7); HEMOGLOBIN 14.3 g/dL (12.0-18.0); LYMPH # 0.8 K/uL (1.0-4.3); LYMPH % 13.7 % (20.0-40.0); MEAN CELL VOLUME 83.6 fL (80.0-94.0); MEAN CORPUSCULAR HEMOGLOBIN 28.6 pg (27.0-31.0); MEAN CORPUSCULAR HGB CONC 34.2 g/dL (33.0-37.0); MONO # 0.6 K/uL (0.0-0.8); MONO % 9.9 % (0.0-10.0); NRBC % 0.2 % (0.0-2.0); RBC 5.01 Mil/uL (4.40-5.90); RED CELL DISTRIBUTION WIDTH 13.9 % (11.5-14.5); WHITE BLOOD COUNT 5.7 K/uL (4.8-10.8)
--- NOTE | 2018-09-04 11:55 | CP.PCM.PN ---
Subjective - Date & Time of Evaluation Date of Evaluation: 09/04/18 Time of Evaluation: 11:55 - Subjective Subjective: Podiatry - Dr. Peng 68M seen and evaluated this AM POD#2 left foot 4th digit amputation. Patient resting comfortably, hemodynamically stable and NAD. No acute events overnight. Per nursing, patient noncompliant with strict NWB orders. Patient denies any pain to left foot. Denies n/v/f/c/prabhakar/dizziness. Patient aware he is to follow up with Dr. Peng in office for post-op check within 1 week of dc. Objective - Vital Signs/Intake and Output Vital Signs (last 24 hours): Temp Pulse Resp BP Pulse Ox 97.4 F L 66 20 115/78 96 09/04/18 07:50 09/04/18 07:50 09/04/18 07:50 09/04/18 07:50 09/04/18 07:50 Intake and Output: 09/04/18 09/04/18 06:59 18:59 Intake Total 900 Balance 900 - Medications Medications: Current Medications Acetaminophen (Tylenol 325mg Tab) 650 mg PO Q6 PRN PRN Reason: Pain, Mild (1-3) Last Admin: 09/03/18 23:50 Dose: 650 mg Alprazolam (Xanax) 0.25 mg PO BID [facility] Stop: 09/07/18 18:01 Last Admin: 09/04/18 09:46 Dose: 0.25 mg Buspirone HCl (Buspar) 20 mg PO TID [facility] Last Admin: 09/04/18 09:47 Dose: 20 mg Carvedilol (Coreg) 6.25 mg PO BID [facility] [place] Last Admin: 09/04/18 09:46 Dose: 6.25 mg Enoxaparin Sodium (Lovenox) 40 mg SC DAILY [facility] [place] Last Admin: 09/04/18 09:46 Dose: 40 mg Home Med (Patient's Own Medication) 1 tab PO DAILY [facility] [place] Last Admin: 09/04/18 09:46 Dose: 1 tab Piperacillin Sod/Tazobactam (Sod 3.375 gm/ Sodium Chloride) 100 mls @ 200 mls/hr IVPB Q8H [facility] [place]; Protocol Last Admin: 09/04/18 05:36 Dose: 200 mls/hr Mupirocin (Bactroban Ointment) 0 gm TOP DAILY [facility] Last Admin: 10/12/18 09:47 Dose: Not Given Oxycodone/Acetaminophen (Percocet 5/325 Mg Tab) 1 tab PO Q6H PRN PRN Reason: Pain, moderate (4-7) Stop: 09/05/18 10:13 Last Admin: 09/03/18 01:46 Dose: 1 tab Oxycodone/Acetaminophen (Percocet 5/325 Mg Tab) 2 tab PO Q6H PRN PRN Reason: Pain, severe (8-10) Stop: 09/05/18 10:13 Rosuvastatin Calcium (Crestor) 10 mg PO HS [facility] [place] Last Admin: 09/03/18 21:10 Dose: 10 mg Sacubitril/Valsartan (Entresto 24 Mg-26 Mg) 1 tab PO BID [facility] [place] Last Admin: 09/04/18 09:46 Dose: 1 tab Sertraline HCl (Zoloft) 100 mg PO DAILY [facility] Last Admin: 09/04/18 09:47 Dose: 100 mg - Labs Labs: 09/04/18 11:31 09/02/18 06:27 PT 13.0 SECONDS (9.7-12.2) H 09/02/18 06:27 INR 1.2 09/02/18 06:27 - Constitutional Appears: Well, Non-toxic, No Acute Distress - Extremities Exam Additional comments: LLE focused physical exam: VASC: DP and PT pulses palpable 2/4. CFT <3 seconds to digits x4. Temperature gradient warm to warm. NEURO: Protective sensation diminished. DERM: Linear incision noted to 4th digit amputation site noted to be well- coapted with sutures intact and no wound dehiscence noted; no active bleeding present; minimal periwound ecchymosisi; no fluctuance; no purulence. ORTHO: No pain on palpation noted to incision. 4th digit amputation. Muscle strength 5/5 for all dorsiflexors, plantarflexors, inverters, and everters. - Neurological Exam Neurological Exam: Alert, Awake, Oriented x3 - Psychiatric Exam Psychiatric exam: Normal Affect, Normal Mood Assessment and Plan - Assessment and Plan (Free Text) Assessment: 68M POD#2 left 4th digit amputation (DOS: 09/02/18) Plan: Patient seen and evaluated with attending, Dr. Peng Afebrile Left 4th digit wound culture: coagulase neg staph Left 4th digit intra-op deep cultures: prelim no growth Continue local wound care: xeroform, DSD, NANDA Activity: PWB to heel in surgical shoe LLE ID on board - continue abx, Zosyn Recommend Keflex 500mg TID x10 days Restart lovenox today Dispo: dc today, f/u with Dr. Peng in office within 1 week Podiatry will continue to follow
[2018-09-04 12:27] LABS: ALB/GLOB RATIO 1.4 (1.0-2.1); ALBUMIN 4.2 g/dL (3.5-5.0); ALT/SGPT 27 U/L (21-72); AST/SGOT 18 U/L (17-59); BLOOD UREA NITROGEN 13 mg/dL (9-20); CALCIUM 9.1 mg/dl (8.6-10.4); GFR NON-AFRICAN AMERICAN > 60
--- NOTE | 2018-09-05 01:16 | OP ---
PROCEDURE DATE: 09/03/2018 PREOPERATIVE DIAGNOSIS: Left foot digit ulcer with osteomyelitis. POSTOPERATIVE DIAGNOSIS: Left foot digit ulcer with osteomyelitis. PROCEDURE: Left foot digit amputation. INDICATION: The patient is a 68-year-old male with the above diagnosis. The patient exhausted all conservative treatment at this time and now requires surgical intervention. The patient signed the consent after careful explanation of risk, benefits, complications, and alternatives for surgical procedures. No guarantees were given nor implied. N.p.o. status was confirmed prior to taking the patient to the OR. PREPARATION: The patient was brought into the operating room and placed on the operating room table in a supine position. Time-out was performed for identification of the correct patient and procedure. After informed consent of IV sedation, the patient received a total of 10 mL of 1:1 mixture of 1% lidocaine and 0.25% Marcaine in a local block type fashion to the left foot. The left foot was then prepped and draped in a normal sterile manner and the procedure began. No tourniquet was used for the procedure. SURGEON: Jared Peng DPM, PGY-1. PORCELAIN FINISHER: Dr. Nesha Peng, PGY-1. ANESTHESIOLOGIST: Dr. Traylor. ANESTHESIA: IV sedation with local anesthesia; 10 mL of 1:1 mixture of 1% lidocaine and 0.25% Marcaine. DESCRIPTION OF PROCEDURE: Attention was then drawn to the dorsal aspect of the foot digit on the left side where a fish mouth type incision was made circumferentially at the level of the PIPJ. Using a #15 blade, incision was then extended down through the subcutaneous layers down to the level of the bone. Using a bone clamp to stabilize the toe, the fourth digit was then disarticulated from the site at the level of the MPJ and MPJ was passed from the operative field and sent to pathology. Using a fresh #15 blade, nonviable tissue was then excised from the site. Next, the surgical site was flushed with sterile saline. A deep wound culture was then taken. At this time, 2-0 Vicryl was used to reapproximate the subcutaneous tissue and 3-0 nylon was used to reapproximate the skin edges. The wound was then dressed with Adaptic, 4 x 4 gauze, Kerlix.. POSTOPERATIVE CONDITION: The patient tolerated the anesthesia and procedure well and was escorted to the recovery room with vital signs stable and neurovascular status intact to the left foot. The patient may be partial weightbearing to the heel as tolerated. Podiatry will continue to follow the patient while he remains inhouse. We will await results of wound culture and following pathology result. Nesha Peng Jared Peng DPM MITESH
--- NOTE | 2018-09-05 01:40 | DS ---
The patient is being discharged today, 09/04/2018. HISTORY OF PRESENT ILLNESS: A 68-year-old gentleman was brought in with cellulitis of the left fourth toe. The patient was found to have osteomyelitis. The patient had vascular consultation done with Dr. Graff, Podiatry consultation with Dr. Jared Peng and infectious consultation with Dr. Mujica. No significant PAD was noted. The patient underwent amputation of the left fourth toe. Postoperatively, he did well. He is stable. He is afebrile. The patient has a history of CA lung and cardiomyopathy; congestive heart failure, class 2. He is stable on medical therapy. At this point, he is stable. We will discharge him and be followed up with Dr. Jared Peng and Dr. Mujica as needed. He will see me back in about 1 month's time. He will be placed on Keflex 500 mg p.o. three times a day, which is called into the pharmacy. His vital signs stay stable. He will continue on antidepressant medications as per psychiatrist, which includes Zoloft 100 mg, BuSpar 10 mg. Cardiac-gamez, he will continue on Entresto twice a day, Coreg CR 20 mg one a day, Zocor 40 mg one a day. I will see him back in one month's time. FINAL DIAGNOSES: Osteomyelitis of the left fourth toe; cardiomyopathy; congestive heart failure, stable. Carcinoma of the lung. Jose Peng MD
== END 2018-09-04 12:12 | disposition home or self-care (01) | DRG 504 ==
LOC: C.ER 07:17 → C.9E 08:44 → C.5S 11:11
PROVIDERS: ADMIT Internal Medicine Cardiovascular Disease; ATTEND Internal Medicine Cardiovascular Disease
PROC: 0Y6W0Z0 Detachment at Left 4th Toe, Complete, Open Approach (ICD-10-PCS; principal; 2018-09-03)
PROC: 0HBNXZZ Excision of Left Foot Skin, External Approach (ICD-10-PCS; 2018-09-03)
DX: M86.9 Osteomyelitis, unspecified (principal); I42.9 Cardiomyopathy, unspecified; I11.0 Hypertensive heart disease with heart failure; E78.00 Pure hypercholesterolemia, unspecified; L03.032 Cellulitis of left toe; J44.9 Chronic obstructive pulmonary disease, unspecified; I50.9 Heart failure, unspecified; Z85.118 Personal history of other malignant neoplasm of bronchus and lung; Z87.891 Personal history of nicotine dependence; F32.9 Major depressive disorder, single episode, unspecified